=== PATIENT | female | born 1960 | race Caucasian/White ===

== ENCOUNTER 2023-01-09 09:38 | Day surgery (SDC) | payer MEDICARE ==
[~2023-01-09 09:38] MED LIST: LACTATED RINGERS 1,000 ML IV SCH
[2023-01-09 10:35] VITALS: RESP 16; TEMP 97.1
[2023-01-09] MEDS ORDERED: PROPOFOL 10 MG/ML 20 ML VIAL IV ONE (11:14)
--- NOTE | 2023-01-09 11:26 | P.GSHP ---
History of Present Illness H&P Date: 01/09/23 Chief Complaint: Positive colon guard test This is a 62-year-old female who's had a recent positive colon guard test. Patient presents today for colonoscopy. She denies a significant GI complaints. Past Medical History Past Medical History: CVA/TIA, Hyperlipidemia, Hypertension, Pneumonia, Thyroid Disorder Additional Past Medical History / Comment(s): cva 07/2022 tiredness and depressions post cva History of Any Multi-Drug Resistant Organisms: None Reported Past Surgical History: Hernia Repair Additional Past Surgical History / Comment(s): throbectomy for cva in july 2022,carpal tunnel, Past Anesthesia/Blood Transfusion Reactions: No Reported Reaction Smoking Status: Current every day smoker Medications and Allergies Home Medications Medication Instructions Recorded Confirmed Type Atorvastatin [Lipitor] 40 mg PO HS 01/05/23 01/09/23 History FLUoxetine HCL [PROzac] 20 mg PO BID 01/05/23 01/09/23 History Levothyroxine Sodium 100 mcg PO DAILY 01/05/23 01/09/23 History Liothyronine Sodium [Cytomel] 5 mcg PO DAILY 01/05/23 01/09/23 History Losartan Potassium 50 mg PO HS 01/05/23 01/09/23 History QUEtiapine FUMARATE 100 mg PO HS 01/05/23 01/09/23 History Spironolactone 50 mg PO DAILY 01/05/23 01/09/23 History Cyanocobalamin (Vitamin B-12) 1,000 mcg PO DAILY 01/09/23 01/09/23 History [Vitamin B-12] Riboflavin (Vitamin B2) [Vitamin 100 mg PO DAILY 01/09/23 01/09/23 History B-2] Allergies Allergy/AdvReac Type Severity Reaction Status Date / Time No Known Allergies Allergy Verified 01/09/23 10:09 Surgical - Exam Vital Signs Temp Pulse Resp BP Pulse Ox 97.1 F L 82 16 160/87 98 01/09/23 10:13 01/09/23 10:13 01/09/23 10:13 01/09/23 10:13 01/09/23 10:13 - General well developed, well nourished, no distress - Eyes PERRL - ENT normal pinna - Neck no masses - Respiratory normal expansion - Cardiovascular Rhythm: regular - Abdomen Abdomen: soft, non tender Assessment and Plan Assessment: Positive colon guard test. We'll perform colonoscopy.
--- NOTE | 2023-01-09 12:12 | P.OP ---
Date of Procedure: 01/09/23 Preoperative Diagnosis: Positive colon guard test Screening colonoscopy Postoperative Diagnosis: Rectal polyp Right colon polyp Diverticulosis Procedure(s) Performed: Colonoscopy Anesthesia: MAC Surgeon: Severo Toscano Pathology: other (Right colon polyp, rectal polyp) Condition: stable Disposition: PACU Description of Procedure: Patient's placed on the endoscopy table in the lateral position. She received IV sedation. Digital rectal exam was performed. This revealed no abnormalities. Flexible colonoscope was then placed patient anus and passed throughout the entire colon. The ileocecal valve was visualized. The cecum appeared normal. In the right colon there was a polyp seen was removed with the snare. Scope was withdrawn and the transverse and descending colon there was a few scattered diverticuli. There were a few diverticula noted in the sigmoid colon. Scope was brought back the rectum another polyp seen this removed with a combination of snare and forcep. Scope was withdrawn for patient.
[2023-01-09 12:35] VITALS: BP 128/76; PULSE 65
== END 2023-01-09 12:46 | disposition home or self-care (01) ==
LOC: ORWHC2ENDO 09:38
PROVIDERS: ATTEND Surgery
DX: Z12.11 Encounter for screening for malignant neoplasm of colon (principal); D12.2 Benign neoplasm of ascending colon; K62.1 Rectal polyp; I10 Essential (primary) hypertension; E07.9 Disorder of thyroid, unspecified; E78.5 Hyperlipidemia, unspecified; F32.A Depression, unspecified; Z86.73 Personal history of transient ischemic attack (TIA), and cerebral infarction without residual deficits; F17.200 Nicotine dependence, unspecified, uncomplicated; Z79.890 Hormone replacement therapy; Z79.899 Other long term (current) drug therapy
CPT/HCPCS: 88305; 45385; J2704